=== PATIENT | female | born 1985 | race Caucasian/White ===

== ENCOUNTER 2016-12-21 07:58 | Emergency (ER) | payer BC, MEDICARE, OTHER ==
[~2016-12-21] VITALS: Ht 157.5 cm; Wt 72.0 kg
[~2016-12-21 07:58] MED LIST: ALBU17I INH; CETI10 PO; IBUP-232 PO; LAMI300T OR; LEVA1.2519 IN; LEVE750T8 PO; LEVO.125 PO; LORTA5 PO; MONT10TA2 PO; OXCA600 PO; POTA75TA PO; PROZ20CA11 PO; VITA20003; ZOFR4TAB3 SL; [UNRECOGNIZED DRUG - OTHER]; [UNRECOGNIZED DRUG - OTHER] OR
[2016-12-21 08:00] VITALS: BP 147/92; PULSE 112; RESP 28; TEMP 97.5; O2SAT 91
[2016-12-21 08:11] VITALS: O2SAT 92
[2016-12-21] MEDS ORDERED: methylPREDNISolone SOD SUCC 125 MG/2 ML VIAL IVP ONE (08:15)
[2016-12-21] MEDS ORDERED: SODIUM CHLORIDE 0.9% FLUSH 10 ML FLUSH IVF PRN (08:15)
[2016-12-21] MEDS ORDERED: RESP: ALBUTEROL 2.5 MG/IPRATROPIUM 0.5 MG NEB (SCH) INH ONE (08:15)
[2016-12-21] MEDS: RESP: ALBUTEROL 2.5 MG/3 ML NEB (SCH) INH ×2 (08:25→08:26)
[2016-12-21] MEDS ORDERED: ONDANSETRON HCL 4 MG/2 ML VIAL ONE (08:31)
[2016-12-21 08:36] VITALS: BP 147/92; PULSE 95; RESP 16; O2SAT 99
--- NOTE | 2016-12-21 08:40 | PD ---
HPI Chief Complaint: Respiratory Distress Time Seen by Provider: 08:03 Travel History International Travel<30 days: No Contact w/Intl Traveler<30days: No Traveled to known affect area: No History of Present Illness HPI This is a 31-year-old female with history of reactive airway disease, seizure disorder, neurogenic bladder, presents today with points of asthma exacerbation. Patient denies a fevers chills. Patient states it started yesterday. She reports shortness of breath and wheezing. There is no reported ill contacts. There is no reported upper respiratory infection symptoms. The patient denies any history of being intubated previously. There are no other associated symptoms. PFSH Past Medical History Hx Anticoagulant Therapy: Yes Depression: Yes Cardiovascular Problems: Yes (PALPATATIONS) Diminished Hearing: No Respiratory: Yes (ASTHMA ) Thyroid Disease: Yes ?: Not LMP: 11/23/2016 Tubal Ligation: Yes Past Surgical History Other Surgery: Yes (BLADDER SX, IMPLANT) Social History Alcohol Use: No Tobacco Use: No Substance Use: No Allergies-Medications (Allergen,Severity, Reaction): Coded Allergies: Depakote (Verified Allergy, Severe, attacked bone marrow, 12/21/16) Lamictal (Verified Allergy, Severe, rash, 12/21/16) Latex (Verified Allergy, Severe, rash, 12/21/16) Phenobarbital (Verified Allergy, Severe, seizures, 12/21/16) Reported Meds & Prescriptions Reported Meds & Active Scripts Active Medrol Dosepak (Methylprednisolone) 4 Mg Dspk 4 Mg PO DIRECTED Per Pharmacist direction Zofran ODT (Ondansetron HCl) 4 Mg Tab 4 Mg SL Q6 PRN FOR NAUSEA/VOMITING Motrin (Ibuprofen) 600 Mg Tab 600 Mg PO QID GIVE WITH FOOD Hydrocodone/Acetaminophen 5 mg/325 mg 1 Tab 1 Tab PO Q6H PRN Reported Proventil Mdi (Albuterol Sulfate) 17 Gm Aero 2 Puff INH Q4H PRN Proventil Mdi (Albuterol Sulfate) 17 Gm Aero 2 Puff INH Xopenex Concentrate (Levalbuterol Hcl) Neb 1 IN Potassium 75 Mg Tab 198 Mg PO DAILY@0600 Vitamin D (Cholecalciferol) 2,000 Unit Cap BID Singulair (Montelukast Sodium) 10 Mg Tab 10 Mg PO HS Synthroid (Levothyroxine Sodium) 125 Mcg Tab 125 Mcg PO DAILY Prozac (Fluoxetine HCl) 20 Mg Cap 20 Mg PO DAILY Lamictal Xr (Lamotrigine) 300 Mg Tab 300 Mg OR BID Zyrtec 10 Mg Tab (Cetirizine HCl) 10 Mg Tab 10 Mg PO DAILY Kp Folic Acid (Folic Acid) 800 Mcg Tab 800 Mcg OR DAILY [zonogram] 100 BID Trileptal 600 Mg Tab (Oxcarbazepine) 600 Mg Tab 600 Mg PO BID Keppra (Levetriacetam) 750 Mg Tab 750 Mg PO Q12 Review of Systems Except as stated in HPI: all other systems reviewed are Neg HENT: No: Headaches, Lightheadedness Cardiovascular: No: Chest Pain or Discomfort, Palpitations Respiratory: Positive: Shortness of Breath, Wheezing, No: Cough Gastrointestinal: Positive: Nausea, No: Vomiting, Abdominal Pain Musculoskeletal: No: Weakness, Pain Neurologic: No: Weakness, Dizziness Physical Exam Narrative GENERAL: Well-nourished, well-developed patient in mild to moderate respiratory discomfort. SKIN: Warm and dry. HEAD: Normocephalic/atraumatic. EYES: No scleral icterus. No injection or drainage. NECK: Supple, trachea midline. CARDIOVASCULAR: Regular rate and rhythm without murmurs, gallops, or rubs. RESPIRATORY: Diffuse bilateral expiratory wheezes. No Rales appreciated. GASTROINTESTINAL: Abdomen soft, non-tender, nondistended. NEUROLOGICAL: Awake and alert. Cranial nerves II through XII intact. Motor grossly within normal limits. Five out of 5 muscle strength in all muscle groups. Normal speech. Data Data Last Documented VS Vital Signs Date Time Temp Pulse Resp B/P Pulse Ox O2 Delivery O2 Flow Rate FiO2 12/21/16 10:57 105 26 95/50 98 Nasal Cannula 3 12/21/16 08:00 97.5 Orders Iv Access Insert/Monitor (12/21/16 08:03) Ecg Monitoring (12/21/16 08:03) Oximetry (12/21/16 08:03) Oxygen Administration (12/21/16 08:03) Chest, Single Ap (12/21/16 08:03) Sodium Chloride 0.9% Flush (Ns Flush) (12/21/16 08:15) Methylprednisolone So Succ Inj (Solumedr (12/21/16 08:15) Albuterol-Ipratropium Neb (Duoneb Neb) (12/21/16 08:15) Albuterol Neb (Albuterol Neb) (12/21/16 08:15) Ondansetron Inj (Zofran Inj) (12/21/16 08:31) MDM Medical Decision Making Medical Screen Exam Complete: Yes Emergency Medical Condition: Yes Differential Diagnosis Asthma exacerbation versus pneumonia versus pulmonary embolus versus Narrative Course 31-year-old female history of asthma, presents today with complaints of asthma exacerbation. The patient came man with tight lungs with decreased breath sounds. The patient was given Solu-Medrol 125 mg times one dose. Her first dose of nebulizer was a DuoNeb followed by 2 albuterol's. Examination at 12 noon, patient has open airways with no wheezing. She feels much improved. She' ll be discharged with a Medrol Dosepak told to use her nebulizer at home. She' s also instructed to follow up with her primary care physician. Diagnosis Primary Impression: Asthma with acute exacerbation in adult Med/Other Pt SpecificInfo: Prescription(s) given Scripts Methylprednisolone Dosepak (Medrol Dosepak)4 Mg Dspk4 Mg PO DIRECTED #1 DSPK Ref 0 Per Pharmacist direction Prov:Christo Barakat MD 12/21/16 Disposition: LEFT WITHOUT BEING SEEN Christo Barakat MD Dec 21, 2016 08:40
--- NOTE | 2016-12-21 08:49 | RADRPT ---
EXAM DATE/TIME: 12/21/2016 08:31 [facility] COMPARISON: No previous studies available for comparison. INDICATIONS : Respiratory distress. MEDICAL HISTORY : Renal calculi. Asthma. SURGICAL HISTORY : Pacemaker. Bladder stimulator. Multiple renal stone removal surgeries. ENCOUNTER: Initial ACUITY: 1 day PAIN SCORE: 7/10 LOCATION: Chest, head. FINDINGS: A single view of the chest demonstrates the lungs to be symmetrically aerated without evidence of mas s, infiltrate or effusion. The cardiomediastinal contours are unremarkable. Osseous structures are intact. There is a internist medical doctor md overlying the left chest with the lead extending superiorly within the right neck. No evidence of cardiac leads. CONCLUSION: No acute disease. Nubia Barcenas MD on December 21, 2016 at 8:45 Board Certified Radiologist. This report was verified electronically.
[2016-12-21 09:19] VITALS: BP 95/60; PULSE 58; RESP 16; O2SAT 100
[2016-12-21] MEDS ORDERED: MEDR4PAK PO (10:44)
[2016-12-21 10:57] VITALS: BP 95/50; PULSE 105; RESP 26; O2SAT 98
== END 2016-12-21 14:29 | disposition home or self-care (01) ==
LOC: NEPE 07:58
DX: J45.901 Unspecified asthma with (acute) exacerbation (principal); Z79.01 Long term (current) use of anticoagulants
CPT/HCPCS: 71010; 94640; 94664; 96374; 96375; 99283; J2405; J2930; J7613